=== PATIENT | female | born 1985 | race Caucasian/White ===

== ENCOUNTER 2016-09-02 05:21 | Emergency (ER) | payer OTHER ==
[~2016-09-02] VITALS: Ht 170.2 cm; Wt 143.3 kg
[~2016-09-02 05:21] MED LIST: ADDERALL XR 3030 MG PO; ADDERALL20 MG PO; BUPROPION XL300 MG PO; BUSPAR5 MG PO; CLONAZEPAM0.5 MG PO; CONTRAVE ER 8-1 EACH PO; EFFEXOR XR150 MG PO; FIORICET,ESG1 TABLET PO; METFORMIN HCL1000 MG PO; METFORMIN HCL500 MG PO; NEXIUM40 MG PO; NUVARING VAGIN1 EACH VG; NUVIGIL150 MG PO; PEPCID20 MG PO; TORADOL10 MG PO; WELLBUTRIN SR100 MG PO; ZOFRAN ODT4 MG PO
[2016-09-02 05:50] LABS: HEMATOCRIT 42.8 % (36.0-46.0); MCH 30.5 PG (29.0-34.0); MCHC 34.1 G/DL (30.0-36.0); MCV 89.4 FL (83-99); MEAN PLAT.VOLUME 10.8 uM^3 (9.5-12.4); PLATELET COUNT 286 K/uL (156-360); RBC DIS.WIDTH-CV 12.3 % (11.8-14.6); RBC DIS.WIDTH-SD 39.8 % (39-53); RED BLOOD COUNT 4.79 M/uL (3.80-5.20); WHITE BLOOD COUNT 9.5 K/uL (4.1-10.2)
[2016-09-02 05:54] LABS: ADD MIUA? YES; BILIRUBIN NEGATIVE; BLOOD MODERATE; COLOR YELLOW ((YELLOW)); GLUCOSE (STRIP) NEGATIVE; KETONES 5; LEUKOCYTES NEGATIVE; NITRITE NEGATIVE; PROTEIN (STRIP) NEGATIVE; UROBILINOGEN 0.2 MG/DL (0.2-1.0)
[2016-09-02 06:00] LABS: CHLORIDE 104 mEq/L (99-109); POTASSIUM 3.7 mEq/L (3.7-5.4); SODIUM 141 mEq/L (136-147)
[2016-09-02 06:02] LABS: GLUCOSE 110 mg/dL (70-99)
[2016-09-02 06:04] LABS: ANION GAP 11 MEQ/L (2-14); TOTAL BILIRUBIN 0.9 mg/dL (0.0-1.0)
[2016-09-02 06:04] LABS: BACTERIA RARE /HPF; EPITHELIAL CELLS 1+ /HPF; MUCUS 1+ /LPF; UCUL ADDED? NO
[2016-09-02 06:06] LABS: ALKALINE PHOSPHATASE 80 IU/L (3-129); GFR ESTIMATE (CALCULATED) > 59 mL/min/
[2016-09-02 06:07] LABS: UREA NITROGEN (BUN) 8 mg/dL (9-23)
[2016-09-02 06:09] LABS: LIPASE 6 U/L (1.0-51.0)
[2016-09-02 06:16] LABS: QUANTITATIVE HCG < 4.0 MIU/ML
[2016-09-02] MEDS ORDERED: ZOFRAN8 MG PO (06:59)
[2016-09-02] MEDS ORDERED: BENTYL20 MG PO (06:59)
[2016-09-02] MEDS ORDERED: PEPCID20 MG PO (06:59)
[2016-09-02] MEDS ORDERED: MACROBID100 MG PO (06:59)
[2016-09-02 07:24] VITALS: BP 124/77
== END 2016-09-02 07:25 | disposition home or self-care (01) ==
LOC: EME 05:21
PROVIDERS: Emergency Medicine
DX: R10.13 Epigastric pain (principal); N30.91 Cystitis, unspecified with hematuria; R11.2 Nausea with vomiting, unspecified; Z98.84 Bariatric surgery status; R56.9 Unspecified convulsions
CPT/HCPCS: 74177; 80053; 81003; 83690; 84702; 85027; 99281; 99284; J2405; J3010; J7030; S0028

== ENCOUNTER 2017-07-18 00:31 | Emergency (ER) | payer OTHER ==
[~2017-07-18] VITALS: Ht 172.7 cm; Wt 147.0 kg
[~2017-07-18 00:31] MED LIST changes: +BENTYL20 MG PO; +MACROBID100 MG PO; +ZOFRAN8 MG PO
[2017-07-18 02:29] VITALS: BP 130/87
== END 2017-07-18 02:29 | disposition home or self-care (01) ==
LOC: EME 00:31
DX: S80.01XA Contusion of right knee, initial encounter (principal); S80.02XA Contusion of left knee, initial encounter; S50.02XA Contusion of left elbow, initial encounter; W01.0XXA Fall on same level from slipping, tripping and stumbling without subsequent striking against object, initial encounter; Y92.524 Gas station as the place of occurrence of the external cause; R56.9 Unspecified convulsions; E28.2 Polycystic ovarian syndrome; Z79.3 Long term (current) use of hormonal contraceptives; Z98.84 Bariatric surgery status; Z90.49 Acquired absence of other specified parts of digestive tract; Z88.6 Allergy status to analgesic agent; Z88.5 Allergy status to narcotic agent; Z88.8 Allergy status to other drugs, medicaments and biological substances
CPT/HCPCS: 73080; 73564; 99281; 99284

== ENCOUNTER 2017-09-05 11:22 | Emergency (ER) | payer OTHER ==
[~2017-09-05] VITALS: Ht 170.2 cm; Wt 146.4 kg
[2017-09-05 11:46] LABS: APPEARANCE CLEAR ((CLEAR)); BILIRUBIN NEGATIVE; BLOOD SMALL; COLOR STRAW ((YELLOW)); GLUCOSE (STRIP) NEGATIVE; KETONES NEGATIVE; LEUKOCYTES NEGATIVE; NITRITE NEGATIVE; PROTEIN (STRIP) NEGATIVE; SPECIFIC GRAVITY 1.003 (1.000-1.030); UROBILINOGEN 0.2 MG/DL (0.2-1.0)
[2017-09-05 11:49] LABS: HEMATOCRIT 39.6 % (36.0-46.0); HEMOGLOBIN 13.5 G/DL (11.9-15.5); MCH 29.9 PG (29.0-34.0); MCHC 34.1 G/DL (30.0-36.0); MCV 87.8 FL (83-99); PLATELET COUNT 305 K/uL (156-360); RBC DIS.WIDTH-CV 12.8 % (11.8-14.6); RBC DIS.WIDTH-SD 41.2 % (39-53); RED BLOOD COUNT 4.51 M/uL (3.80-5.20); WHITE BLOOD COUNT 10.5 K/uL (4.1-10.2)
[2017-09-05 11:52] LABS: BACTERIA RARE /HPF; EPITHELIAL CELLS RARE /HPF; MUCUS NONE SEEN /LPF; RED BLOOD CELLS 0-5 /HPF (0-5); UCUL ADDED? NO; WHITE BLOOD CELLS 0-5 /HPF (0-5)
[2017-09-05 12:30] LABS: ALKALINE PHOSPHATASE 79 IU/L (3-129); ALT (GPT) 24 IU/L (3-49); AST (GOT) 24 IU/L (2-34); CHLORIDE 110 MEQ/L (99-109); CREATININE 0.7 MG/DL (0.6-1.3); GFR ESTIMATE (CALCULATED) > 59 mL/min/; GLUCOSE 92 mg/dL (70-99); SODIUM 139 MEQ/L (136-147); TOTAL BILIRUBIN 0.5 MG/DL (0.0-1.0); TOTAL PROTEIN 6.5 G/DL (6.4-8.3); UREA NITROGEN (BUN) 10 mg/dL (9-23)
[2017-09-05 12:34] LABS: QUANTITATIVE HCG < 4.0 MIU/ML
[2017-09-05 16:12] VITALS: BP 139/70
== END 2017-09-05 16:13 | disposition home or self-care (01) ==
LOC: EME 11:22
DX: N83.201 Unspecified ovarian cyst, right side (principal); Z98.84 Bariatric surgery status; Z86.69 Personal history of other diseases of the nervous system and sense organs; Z88.6 Allergy status to analgesic agent; Z88.5 Allergy status to narcotic agent
CPT/HCPCS: 76856; 80053; 81003; 84702; 85027; 99281; 99284